=== PATIENT | female | born 1965 | race Caucasian/White ===

== ENCOUNTER 2018-11-14 12:00 | Observation (INO) ==
[2018-11-14] MEDS ORDERED: VANCOMYCIN IV PER PHARMACY MISC SCH (12:30)
[2018-11-14 12:58] LABS: BASO# 0.06 X1000 (0.0-0.2); BASO% 0.7 % (0.0-0.8); EOS# 0.42 X1000 (0.0-0.7); EOS% 5.1 % (0.0-10.0); HEMATOCRIT 40.5 % (37.0-47.0); HEMOGLOBIN 12.6 g/dL (12.0-16.0); IMM GRAN# 0.02 X1000 (0.0-0.04); IMM GRAN% 0.2 % (0.0-0.5); LYMPH# 2.92 X1000 (1.2-3.4); LYMPH% 35.3 % (20.5-51.1); MCH 29.4 PG (27-31); MCHC 31.1 g/dL (33-37); MCV 94.4 FL (81-99); MONO# 0.72 X1000 (0.11-0.59); MONO% 8.7 % (1.7-9.3); MPV 9.6 FL (7.4-10.4); NEUT# 4.14 X1000 (1.4-6.5); PLT 274 X1000 (130-400); RBC 4.29 XMIL (4.2-5.4); RDW 15.1 % (11.5-14.5); WBC 8.28 X1000 (4.8-10.8)
[2018-11-14] MEDS ORDERED: ZOSYN 3.375 GM in NS 50 ML IV SCH (13:00)
[2018-11-14] MEDS ORDERED: NS IV ONE (13:00)
[2018-11-14] MEDS ORDERED: VANCOMYCIN IV ONE (13:00)
--- NOTE | 2018-11-14 13:03 | EKG Report ---
Test Performed on : 11/14/2018 12:52:35 PM Test Reason : HX OF DVT Blood Pressure : / mmHG Vent. Rate : 073 BPM Atrial Rate : 073 BPM P-R Int : 148 ms QRS Dur : 088 ms QT Int : 404 ms P-R-T Axes : 040 015 020 degrees QTc Int : 445 ms Normal sinus rhythm. Nonspecific T wave abnormality Abnormal ECG When compared with ECG of 05-AUG-2018 21:02, No significant change was found Unconfirmed Result
[2018-11-14 13:28] LABS: AGAP 10; ALB/GLOB RATIO 1.2; ALBUMIN 3.9 g/dL (3.5-5.0); ALKALINE PHOSPHATASE 100 U/L (32-104); BUN 9 mg/dL (8-22); CALCIUM 9.6 mg/dL (8.8-10.2); CHLORIDE 103 mmol/L (98-107); COSMO 275; CREATININE 0.8 mg/dL (0.5-0.9); ESTIMATED GFR > 60; GLUCOSE 109 mg/dL (70-104); GOT 19 U/L (10-30); GPT 17 U/L (10-36); POTASSIUM 3.9 mmol/L (3.5-5.1); SODIUM 138 mmol/L (136-145); TCO2 25 mmol/L (25-35); TOTAL PROTEIN 7.2 g/dL (6.3-8.3)
[2018-11-14] MEDS: D5 1/2 NS 1,000 ML IV SCH (14:07)
[2018-11-14 14:33] LABS: URINE SOURCE CLEAN CATCH
[2018-11-14 14:37] LABS: BILIRUBIN URINE NEGATIVE (NEGATIVE); BLOOD URINE MODERATE (NEGATIVE); COLOR YELLOW; GLUCOSE URINE NEGATIVE (NEGATIVE); KETONE URINE NEGATIVE (NEGATIVE); LEUKOCYTES URINE NEGATIVE (NEGATIVE); NITRITE URINE NEGATIVE (NEGATIVE); PROTEIN URINE 50 mg/dL (NEGATIVE); TURBIDITY URINE CLEAR (CLEAR); UROBILINOGEN URINE 2 mg/dL (NORMAL)
[2018-11-14 14:40] LABS: UR EPITHELIAL CELLS <10 /HPF (<10); URINE BACTERIA NEGATIVE /HPF; URINE RBC TNTC /HPF (<10); URINE WBC <10 /HPF (<10)
[2018-11-14] MEDS: MAXIPIME 2 GM in NS 100 ML IV SCH (15:01)
--- NOTE | 2018-11-14 15:09 | INFECTIOUS DISEASE CONSULT REP ---
DATE: 11/14/2018 DISCUSSION: The patient, approximately 3 days ago, started to develop swelling and erythema of the dorsal part of her right hand. She thinks that she may have injured her hand while she was doing recycling on some metal cans. She is scheduled now to have surgery performed by Dr. Ramirez on her hand. PAST MEDICAL HISTORY/REVIEW OF SYSTEMS: Eyes and ears: She can see and hear okay. Neck: No stiffness. Respiratory: No cough or shortness of breath. Cardiac: No chest pains or palpitation. GI: No nausea, vomiting, or diarrhea. Genitourinary: No dysuria or flank pain. Bones, joints, and muscles: The patient has injured her ankle and required surgery on it, and she intermittently has pain in the ankle, but it is not swollen. Endocrine: The patient is not diabetic, and she does not have thyroid disease. Neurologic: The patient does not have seizures. She has not had any recent motor or sensory loss. 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 She has had a uterine ablation. PREVIOUS HOSPITALIZATIONS AND OPERATIONS: She has had a labor and delivery, a miscarriage, and a uterine ablation. She has had surgery on her ankle, and she has also had surgery because of a methicillin-resistant Staph aureus infection in the left groin. The patient has also had a tonsillectomy, a cholecystectomy, surgery for renal calculus, admission for an infected cat bite, and she has also had a pulmonary embolus. MEDICAL DISEASES: Positive for pulmonary embolus. INFECTIOUS DISEASE HISTORY: Positive for pneumonia and UTI. FAMILY HISTORY: Positive for hypertension, stroke, cancer, and myocardial infarction. SOCIAL HISTORY: [place] She is . She has cats and a dog and guinea pigs and fish for pets. She smokes cigarettes occasionally. She drinks alcoholic beverages, and occasionally she uses marijuana. ALLERGIES: She is allergic to azithromycin. She says it makes her face feel like it is burning. The patient has patient is allergic to acetaminophen. HOME MEDICATIONS: Include Suboxone, Zyrtec, Klonopin, Dexilant, fluticasone, Neurontin, Linzess, Remeron, Zofran, Inderal, and Xarelto. The patient tells me that the pain medicine that she takes is because of pain in her ankle that was injured and required surgery. LABORATORY DATA: CBC with a white count of 8280, hemoglobin 12.6, and platelet count 274,000. Creatinine was 0.8. GFR is greater than 60. Liver function studies were normal. PHYSICAL EXAMINATION: Vital Signs: Temperature is 99 degrees, pulse 82, respirations 12, blood pressure is 109/58. The patient weighs 165 pounds. General: This is a slightly obese, but otherwise healthy-appearing, middle-aged female. She is in no acute distress. HEENT: She can hear my spoken words and see near objects. She does not have any white patches on her tongue. Her sinuses are not tender. Neck: No pain with movement. Lungs: Clear to auscultation. Cardiovascular: Heart rate is regular. Abdomen: Soft and nontender. Extremities: The dorsum of the left hand is swollen and erythematous, and it has two small erythematous areas where the patient thinks that she might have injured her hand when she was dealing with metal cans for recycling. Neurologic: The patient is alert. She can move her extremities. There is no tremor. Her sensation is intact to touch. Her memory as regarding her medical history is intact. Integument: No rashes. CONCLUSION: The patient is admitted to the hospital with cellulitis of the left hand. She is uncertain as to how exactly she got the cellulitis. RECOMMENDATIONS: I agree with treating the patient with vancomycin. I have substituted cefepime for Zosyn because it has been shown that Zosyn in combination with vancomycin is more nephrotoxic than if another beta-lactam antibiotic such as cefepime is used instead of Zosyn. For that reason, I have substituted cefepime for Zosyn. Thank you for the consult. cc: MD Bart Cortes MD
[2018-11-14] MEDS ORDERED: LINZESS PO PRN (15:15)
[2018-11-14] MEDS ORDERED: PATADAY 0.2% OPH SOLUTION BOTH EYES PRN (15:15)
[2018-11-14] MEDS ORDERED: ZOFRAN PO PRN (15:15)
[2018-11-14] MEDS: NEURONTIN PO SCH ×4 (16:16→20:23)
[2018-11-14] MEDS: INDERAL PO SCH ×2 (20:22→20:35)
[2018-11-14] MEDS: FLONASE NAS SCH (20:22)
[2018-11-14] MEDS: DEXILANT PO SCH (20:22)
[2018-11-14] MEDS: KLONOPIN PO SCH (20:23)
[2018-11-14] MEDS: REMERON PO SCH (20:23)
[2018-11-15] MEDS: MAXIPIME 2 GM in NS 100 ML IV SCH ×2 (01:51→15:01)
[2018-11-15] MEDS: VANCOMYCIN 1 GM/NS 1 GM/250 ML IVPB IV SCH ×2 (04:05→16:02)
[2018-11-15] MEDS: SUBOXONE 2 MG/0.5 MG SL PRN ×3 (08:06→22:11)
[2018-11-15] MEDS: KLONOPIN PO SCH ×2 (08:07→22:11)
[2018-11-15] MEDS: NEURONTIN PO SCH ×4 (08:49→22:10)
[2018-11-15] MEDS: FLONASE NAS SCH ×3 (08:49→22:11)
[2018-11-15] MEDS: XARELTO PO SCH (08:50)
[2018-11-15] MEDS: INDERAL PO SCH ×2 (08:50→22:10)
[2018-11-15] MEDS: ZYRTEC PO SCH (12:54)
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
[2018-11-15] MEDS: REMERON PO SCH (22:10)
[2018-11-15] MEDS: DEXILANT PO SCH (22:10)
[2018-11-16] MEDS: MAXIPIME 2 GM in NS 100 ML IV SCH (01:54)
[2018-11-16] MEDS: VANCOMYCIN 1 GM/NS 1 GM/250 ML IVPB IV SCH (03:19)
[2018-11-16 08:03] VITALS: BP 112/58
[2018-11-16] MEDS: D5 1/2 NS 1,000 ML IV SCH (08:37)
[2018-11-16] MEDS: XARELTO PO SCH (08:40)
[2018-11-16] MEDS: NEURONTIN PO SCH (08:40)
[2018-11-16] MEDS: INDERAL PO SCH (08:40)
[2018-11-16] MEDS: ZYRTEC PO SCH (08:40)
[2018-11-16] MEDS: FLONASE NAS SCH (08:41)
[2018-11-16] MEDS: KLONOPIN PO SCH (08:42)
[2018-11-16] MEDS: SUBOXONE 2 MG/0.5 MG SL PRN (10:43)
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
== END 2018-11-16 11:49 | disposition home or self-care (01) ==
LOC: DIRADM → 4N 12:00
PROVIDERS: ADMIT Surgery; ATTEND Surgery
CPT/HCPCS: 80053; 81001; 82565; 85025; 87070; 87077; 87186; 93005; 93010; A9270; J0692; J2543; J3370; J7040

== ENCOUNTER 2019-07-09 09:50 | Inpatient (IN) ==
[2019-07-09] MEDS ORDERED: ASPIRIN PO ONE (10:24)
[2019-07-09] MEDS ORDERED: ASPIRIN PR ONE (10:24)
[2019-07-09] MEDS ORDERED: MORPHINE IV ONE (10:32)
[2019-07-09] MEDS ORDERED: NS 1,000 ML IV ONE ×2 (10:32→14:01)
--- NOTE | 2019-07-09 10:42 | PROVIDER DOCUMENTATION ---
HPI-Chest Pain - General Chief Complaint: Chest Pain Stated Complaint: CP Time Seen by Provider: 07/09/19 10:13 Source: patient Allergies/Adverse Reactions: Patient Allergies Allergy/AdvReac Type Severity Reaction Status Date / Time azithromycin [From Zithromax] AdvReac NAUSEA Verified 08/09/18 04:42 Home Medications: Home Medication List Medication Instructions Recorded Confirmed Last Taken Type Clonazepam [Klonopin] 1 mg PO TID 10/19/17 07/09/19 11/13/18 21:00 History Dexlansoprazole [Dexilant] 60 mg PO HS 10/19/17 07/09/19 11/13/18 21:00 History Gabapentin [Neurontin] 800 mg PO 4XDAY 10/19/17 07/09/19 11/14/18 09:00 History Ondansetron [Zofran] 4 mg PO TID PRN PRN 10/19/17 07/09/19 11/12/17 09:00 History Cetirizine HCl [Zyrtec] 10 mg PO DAILY 08/05/18 07/09/19 11/13/18 21:00 History Mirtazapine [Remeron] 45 mg PO HS 08/05/18 07/09/19 11/13/18 21:00 History Fluticasone 50 Mcg Nasal [place] 1 spray GERARDO PRN PRN 08/06/18 07/09/19 Unknown History [Flonase] Olopatadine 0.2% Oph Solution 1 drop BOTH EYES TID PRN 08/06/18 07/09/19 11/13/18 09:00 History [[place] 0.2% Oph Solution] Propranolol [Inderal] 1 tab PO BID PRN 08/06/18 07/09/19 11/13/18 21:00 History Rivaroxaban [Xarelto] 20 mg PO QAM 11/14/18 07/09/19 11/14/18 09:00 History Fluoxetine HCl [Prozac] 10 mg PO DAILY 06/09/19 07/09/19 Unknown History Linaclotide [Linzess] 1 tab PO DAILY PRN 07/09/19 07/09/19 Unknown History Sucralfate 1 tab PO 4XDAY 07/09/19 07/09/19 Unknown History - History of Present Illness-CP Location: reports: substernal (dull in quaility with radiation to the left shoulder) Chest Pain Radiation: reports: shoulders (left) Quality of Pain: reports: dull Severity in ED: mild Onset/Duration: gradual, other (yesterday morning) Timing: improving Context/Activities at Onset: reports: light activity Modifying Factors: improves with: nothing. worse with: breathing, coughing, exercise, movement Associated Symptoms: reports: fatigue, nausea, shortness of breath, weakness. denies: abdominal pain, diaphoresis, dizziness, edema, fever/chills, headache, heartburn, swelling/lump in chest, syncope, vomiting Nitro Today/Relief: no nitro taken today Aspirin Treatment Today: no aspirin today (took her Xarelto) Prior Chest Pain/Cardiac Workup: reports: pulmonary embolism Similar Symptoms Previously?: Yes Recently Seen Here or By Another Healthcare Provider: Yes Review of Systems - Adult - REVIEW OF SYSTEMS - ADULT Constitutional: reports: see HPI, fatique. denies: chills, fever Eyes: reports: no symptoms reported Ears, Nose, Mouth & Throat: reports: no symptoms reported Cardiovascular: reports: see HPI, chest pain. denies: palpitations, syncope Respiratory: reports: see HPI, dyspnea on exertion, shortness of breath. denies: cough Gastrointestinal: reports: see HPI Genitourinary: reports: see HPI Musculoskeletal: reports: see HPI Integumentary: reports: see HPI Neurological: reports: see HPI Psychiatric: reports: see HPI Endocrine: reports: see HPI Hematologic/Lymphatic: reports: see HPI, blood clots (history of PE) Allergic/Immunologic: reports: see HPI All Other Systems: Reviewed and Negative Past History - Adult - PAST MEDICAL HISTORY-ADULT Review of Records: reports: Old Records Reviewed, Nursing Assessment Review, Med ications Reviewed, Social history reviewed & non-contributory. Major Childhood Illnesses: reports: denies history Cardiovascular: reports: hyperlipidemia Respiratory: reports: denies history Gastrointestinal: reports: GERD, other Obstetrical/Gynecological: reports: denies history Genitourinary: reports: denies history Musculoskeletal: reports: chronic pain Neurological: reports: denies history Psychiatric: reports: anxiety Endocrine/Immune: reports: denies history Other Conditions: reports: denies history - PRIOR SURGERIES/PROCEDURES Surgical/Procedure History: reports: recent surgery, cholecystectomy, tonsillectomy - IMMUNIZATION STATUS Childhood Immunizations: See Nurse Assessment Flu Vaccine: See Nurse Assessment - FAMILY HISTORY Family History: reviewed, not pertinent - SOCIAL HISTORY Smoking: cigarettes, greater than 1 pack/day Substance Use: alcohol Alcohol Use Frequency: occasionally Physical Exam-General - PHYSICAL EXAM-ADULT Initial Vital Signs Reviewed: Yes - CONSTITUTIONAL General Appearance: alert, mild distress, anxious - EYES Eyes: PERRL/EOMI - HEAD, EARS, NOSE, MOUTH & THROAT HENMT: normocephalic/atraumatic. negative: moist mucous membranes - NECK Neck: non-tender. negative: thyromegaly - RESPIRATORY Respiratory: no respiratory distress, no accessory muscle use, wheezing ( minimal diffuse wheezing). negative: chest non-tender, normal breath sounds (decreased air movement in the lower lobes bilaterally,), no pleuratic chest pain, crackles, rales, rhonchi, stridor - CARDIOVASCULAR Cardiovascular: normal peripheral pulses, no JVD, tachycardia (sinus, regular rhythm) - GASTROINTESTINAL (ABDOMEN) Abdominal Exam: normal bowel sounds, non tender, soft - MUSCULOSKELETAL Back Exam: normal inspection Extremity: normal range of motion, non-tender, normal inspection, no pedal edema , no calf tenderness. negative: swelling, tenderness Peripheral Pulses: radial (R): 2+, radial (L): 2+ - SKIN Integumentary: normal color, warm/dry. negative: normal turgor - NEUROLOGIC Neurologic: grossly normal - PSYCHIATRIC Psych/Mental Status: anxious - HEART Score HEART Score: History: Moderately Suspicious HEART Score: ECG: Normal HEART Score: Age: 45-65 Years HEART Score: Risk Factors for Atherosclerotic Disease: > or = 3 Risk Factors or History of Atherosclerotic Disease HEART Score: Troponin: < or = Normal Limit Total HEART Score:: 4 Progress - PLAN OF CARE/RESULTS Progress/Plan/Lab Results: Vital Signs - 8 hr 07/09/19 09:57 07/09/19 10:00 07/09/19 11:00 Temperature 98.2 F Pulse Rate 95 H 114 H 103 H Respiratory Rate 23 24 18 Blood Pressure 133/95 138/101 111/74 O2 Sat by Pulse Oximetry 97 96 94 L 07/09/19 11:42 07/09/19 12:00 07/09/19 12:45 Temperature Pulse Rate 90 91 H 87 Respiratory Rate 14 20 21 Blood Pressure 119/75 O2 Sat by Pulse Oximetry 98 95 98 07/09/19 13:00 Temperature Pulse Rate 81 Respiratory Rate 19 Blood Pressure 118/66 O2 Sat by Pulse Oximetry 95 Laboratory Results - last 24 hr 07/09/19 07/09/19 07/09/19 10:12 10:12 10:12 WBC 10.98 H RBC 5.49 H Hgb 17.2 H Hct 51.8 H MCV 94.4 MCH 31.3 H MCHC 33.2 RDW Std Deviation 13.5 Plt Count 297 MPV 10.4 Immature Gran % (Auto) 0.3 Neut % (Auto) 63.9 Lymph % (Auto) 24.9 [place] % (Auto) 8.0 Eos % (Auto) 2.4 Baso % (Auto) 0.5 Immature Gran # (Auto) 0.03 Neut # (Auto) 7.02 H Lymph # (Auto) 2.73 [place] # (Auto) 0.88 H Eos # (Auto) 0.26 Baso # (Auto) 0.06 PT INR PTT (Actin FS) Sodium 141 Potassium 3.2 L Chloride 100 Carbon Dioxide 22 L Anion Gap 19 BUN 13 Creatinine 1.0 H Estimated GFR/1.73 m2 58 BUN/Creatinine Ratio 13 Glucose 124 H Calculated Osmolality 283 Calcium 11.2 H Total Bilirubin 0.50 AST 32 H ALT 39 H Alkaline Phosphatase 117 H Creatine Kinase 50 Troponin T [id number] Pept 48 Total Protein 8.2 Albumin 4.6 Globulin 3.6 Albumin/Globulin Ratio 1.3 07/09/19 07/09/19 10:12 10:12 WBC RBC Hgb Hct MCV MCH MCHC RDW Std Deviation Plt Count MPV Immature Gran % (Auto) Neut % (Auto) Lymph % (Auto) [place] % (Auto) Eos % (Auto) Baso % (Auto) Immature Gran # (Auto) Neut # (Auto) Lymph # (Auto) [place] # (Auto) Eos # (Auto) Baso # (Auto) PT 24.8 H INR 2.18 PTT (Actin FS) 46.5 H Sodium Potassium Chloride Carbon Dioxide Anion Gap BUN Creatinine Estimated GFR/1.73 m2 BUN/Creatinine Ratio Glucose Calculated Osmolality Calcium Total Bilirubin AST ALT Alkaline Phosphatase Creatine Kinase Troponin T < 0.010 [id number] Pept Total Protein Albumin Globulin Albumin/Globulin Ratio Orders Category Date Time Status Cardiac Monitoring DIRECTED Care 07/09/19 10:25 Active Oxygen Therapy- ED Nursing DIRECTED Care 07/09/19 10:25 Active Saline Loc NOW Care 07/09/19 10:25 Active CHEST-2 VIEWS [RAD] Stat Exams 07/09/19 10:[address] ANGIOGRM PULMONARY ARTERIES [CT] Stat Exams 07/09/19 10:29 Completed CBC WITH ELECTRONIC DIFF [HEME] Stat Lab 07/09/19 10:12 Completed CK PROFILE [SP CHEM] Stat Lab 07/09/19 10:12 Completed COMPREHENSIVE METABOLIC PANEL [CHEM] Stat Lab 07/09/19 10:12 Completed PRO B-NATRIURETIC PEPTIDE Stat Lab 07/09/19 10:12 Completed PROTIME WITH INR [COAG] Stat Lab 07/09/19 10:12 Completed PTT [COAG] Stat Lab 07/09/19 10:12 Completed TROPONIN T Stat Lab 07/09/19 10:12 Completed 0.9% Sodium Chloride Inj [Ns] 1,000 ml Med 07/09/19 10:32 Discontinued IV 999 mls/hr Aspirin Med 07/09/19 10:24 Discontinued 300 mg MA NOW ONE Aspirin Med 07/09/19 11:16 Discontinued 325 mg .ROUTE .STK-MED ONE Aspirin Med 07/09/19 10:24 Discontinued 325 mg PO NOW ONE Enoxaparin 1 mg/kg [Lovenox 1 mg/kg] Med 07/09/19 12:00 Discontinued 1 each SUBQ Q12H Enoxaparin [Lovenox] Med 07/09/19 12:15 Discontinued 70 mg SUBQ ONCE ONE Enoxaparin [Lovenox] Med 07/10/19 01:00 Active 70 mg SUBQ Q12H Morphine Med 07/09/19 10:32 Discontinued 4 mg IV NOW ONE Ondansetron [Zofran] Med 07/09/19 12:06 Discontinued 4 mg IV NOW ONE Potassium Chloride E.r. [Klor-Con] Med 07/09/19 11:56 Discontinued 40 meq PO NOW ONE Potassium Chloride Powder Pkt [Klor-Con Powder Packet] Med 07/09/19 11:42 Discontinued 40 meq PO NOW ONE CP/SOB/Palp >45 yrs of Age Stat Oth 07/09/19 10:24 Ordered EKG [EKG] Stat Ther 07/09/19 09:57 Draft Transfer/Admit Order [TRANSFER] Routine Transfer 07/09/19 12:57 Ordered Reviewed patient prior visit and prior EKG Result Diagrams: 07/09/19 10:12 07/09/19 10:12 - EKG 1 Time of EKG reading by physician:: 10:01 EKG Read and Signed by:: Michel Yu EKG Interpretation (*Must complete 3 of following elements*): Abnormal (sinus tachycardia) Rate: 116 Rhythm: sinus [place]: normal QRS: normal MA Interval: normal ST Wave: non-specific ST changes Prior EKG Comparison: changes noted - CT/MRI 1 CT Study: Thorax Impression: Abnormal Comparison with other Films: changes noted CT Results: FINDINGS: There is probably a small to moderate, nonocclusive embolus in th - CONSULTS/PCP/HOSPITALIST Notification #1 *Consult/PCP/Hospitalist*: spoke with ARSALAN Donohue who aggreed to accept patient Time Discussed: 12:23 (admitted under Dr. Ziegler) Reason/Comments: left main pulmonary artery embolism Consult Disposition: Will see in ED, Admit Departure - Departure Date of Disposition Decision: 07/09/19 Time of Disposition Decision: 12:11 DIAGNOSIS: Tobacco abuse disorder, Acute dyspnea, Sinus tachycardia Pulmonary embolism Qualifiers: Pulmonary embolism type: single subsegmental (without acute cor pulmonale) Qualified Code(s): I26.93 - Single subsegmental pulmonary embolism without acute cor pulmonale Chest pain Qualifiers: Chest pain type: chest pain on breathing Qualified Code(s): R07.1 - Chest pain on breathing Disposition: ADMITTED INPATIENT 09 Certified Medical Emergency: Emergent Condition: Fair - Critical Care Note This patient required my direct & personal management of CC.: Yes Total Time (mins): 50 (Resp & CVS required immediate intervention to prevent life threatening deterioration.) Critical Care Statement: This patient required my direct personal management to treat or rule out processes, the absence of which, could potentiallly result in sudden, clinically significant life or limb threatening deterioration. Attestation - Physician/ KIRSTEN Attestation Patient care was provided by Advanced Practice Provider:: No The physician spent face to face time with patient:: Yes Advanced Practice Provider documentation review:: Supervising physician onsite and consulted in the evaluation and care of this patient. The physician did have a face to face encounter with the patient.
[2019-07-09 10:50] LABS: BASO# 0.06 X1000 (0.0-0.2); BASO% 0.5 % (0.0-0.8); EOS# 0.26 X1000 (0.0-0.7); EOS% 2.4 % (0.0-10.0); HEMATOCRIT 51.8 % (37.0-47.0); HEMOGLOBIN 17.2 g/dL (12.0-16.0); IMM GRAN# 0.03 X1000 (0.0-0.04); IMM GRAN% 0.3 % (0.0-0.5); LYMPH# 2.73 X1000 (1.2-3.4); LYMPH% 24.9 % (20.5-51.1); MCH 31.3 PG (27-31); MCHC 33.2 g/dL (33-37); MCV 94.4 FL (81-99); MONO# 0.88 X1000 (0.11-0.59); MPV 10.4 FL (7.4-10.4); NEUT# 7.02 X1000 (1.4-6.5); NEUT% 63.9 % (42.2-75.2); PLT 297 X1000 (130-400); RBC 5.49 XMIL (4.2-5.4); RDW 13.5 % (11.5-14.5); WBC 10.98 X1000 (4.8-10.8)
--- NOTE | 2019-07-09 10:57 | Diag Imaging Result Doc PS360 ---
EXAM: CHEST-2 VIEWS 07/09/2019 HISTORY: chest pain TECHNIQUE: PA and lateral chest COMMENT: There are some questionable platelike opacities in the left base which were probably present on 06/10/2019 but were less evident on 08/12/2018. The heart size and pulmonary vascularity are within normal limits and the right lung is clear. IMPRESSION: Minimal left lower lobe and/or lingular atelectasis. Electronically signed by Valente Isidro 07/09/2019 10:55 AM
[2019-07-09] MEDS ORDERED: ASPIRIN ONE (11:16)
[2019-07-09 11:17] LABS: INR 2.18; PROTIME 24.8 Seconds (11.0-16.0)
[2019-07-09 11:18] LABS: ALB/GLOB RATIO 1.3; ALBUMIN 4.6 g/dL (3.5-5.0); CALCIUM 11.2 mg/dL (8.8-10.2); POTASSIUM 3.2 mmol/L (3.5-5.1); PTT 46.5 Seconds (22.3-41.8); TOTAL BILIRUBIN 0.5 mg/dL (0.20-1.00); TOTAL PROTEIN 8.2 g/dL (6.3-8.3)
[2019-07-09] MEDS ORDERED: KLOR-CON POWDER PACKET PO ONE (11:42)
[2019-07-09] MEDS ORDERED: KLOR-CON PO ONE (11:56)
--- NOTE | 2019-07-09 11:57 | Diag Imaging Result Doc PS360 ---
CT ANGIOGRM PULMONARY ARTERIES - 07/09/2019 INDICATION: rule out PE TECHNIQUE: Axial CT images were obtained after administering intravenous contrast. Coronal MIP images were generated. COMPARISON: 08/05/2018 FINDINGS: There is probably a small to moderate, nonocclusive embolus in the left main pulmonary artery. No other vascular abnormalities. There is no adenopathy. Heart size is normal. Upper abdominal images are normal. There is advanced COPD. No infiltrates. Airways are clear. There are moderate degenerative changes of the spine. No acute or suspicious bony lesion. IMPRESSION: Single pulmonary embolus in the left main pulmonary artery. This report was discussed with Dr. Luther Simms on 07/09/2019 at 11:54 AM and was readback. This exam was performed using automated exposure control, adjustment of mA or kV according to patient size, and/or use of iterative reconstruction technique Electronically signed by Ilya Heart 07/09/2019 11:55 AM
[2019-07-09] MEDS ORDERED: LOVENOX 1 MG/KG SUBQ SCH (12:00)
[2019-07-09] MEDS ORDERED: ZOFRAN IV ONE (12:06)
[2019-07-09] MEDS ORDERED: LOVENOX SUBQ ONE (12:15)
--- NOTE | 2019-07-09 13:07 | EKG Report ---
Test Performed on : 07/09/2019 09:57:45 AM Test Reason : ED. No order in [place] Blood Pressure : / mmHG Vent. Rate : 116 BPM Atrial Rate : 116 BPM P-R Int : 146 ms QRS Dur : 090 ms QT Int : 336 ms P-R-T Axes : 064 036 039 degrees QTc Int : 467 ms Sinus tachycardia. Otherwise normal ECG When compared with ECG of 14-NOV-2018 12:52, Vent. rate has increased BY [address] now depressed in Anterior leads Unconfirmed Result
[2019-07-09] MEDS ORDERED: LINZESS PO PRN (14:01)
[2019-07-09] MEDS ORDERED: INDERAL PO PRN (14:01)
[2019-07-09] MEDS ORDERED: NORCO-7.5 PO PRN (14:01)
[2019-07-09] MEDS ORDERED: FLONASE NAS PRN (14:01)
[2019-07-09] MEDS ORDERED: PATADAY 0.2% OPH SOLUTION BOTH EYES PRN (14:01)
--- NOTE | 2019-07-09 14:13 | HISTORY AND PHYSICAL ---
ADDENDUM: Patient seen and examined by me [id number]. All the laboratory, vital signs, and images were reviewed. The patient presented to the emergency department with shortness of breath and some chest discomfort, radiated to the left shoulder and arm. Initial EKG and troponins without abnormality. It showed sinus tachycardia. In the emergency department, she had a CT angiogram of the chest done that showed a single pulmonary embolus in the left main pulmonary artery that looks like it is nonocclusive per the report. There is also advanced COPD and no infiltrates. On the other hand, recently this patient had a colonoscopy done and apparently she has been having some diarrhea afterwards. She has not been able to eat or drink too much. She seems to be clinically dehydrated. We will hydrate this patient. We will start this patient on Lovenox twice a day. She had a previous hospitalization in July 2018 due to pulmonary thromboembolism and she has been seen by Dr. Mcmullen as an outpatient, which we will consult for this episode as well. She stopped taking the Xarelto for 3 days for the procedure and then she apparently started this treatment back again. I will continue with the rest of her home medications. I will put this patient in the PVC unit at least for 24 hours just to monitor her closely. I will check the troponins and I will get a new EKG also in the morning. For this pulmonary embolism, we will use Lovenox twice a day but hopefully we will put this patient back on her home medications tomorrow after the evaluation by Hematology/Oncology Department. cc: Darell Phillips MD
[2019-07-09] MEDS: ZOFRAN IV PRN ×2 (16:54→20:53)
[2019-07-09] MEDS: NEURONTIN PO SCH ×2 (16:54→20:55)
[2019-07-09] MEDS: CARAFATE PO SCH ×2 (16:54→20:55)
[2019-07-09] MEDS ORDERED: KLONOPIN PO SCH (17:00)
--- NOTE | 2019-07-09 19:20 | HISTORY AND PHYSICAL ---
PRIMARY CARE PROVIDER: None. GLASS INSTALLER TECHNICIAN ONCOLOGIST: Dr. Mcmullen. GI SPECIALIST: Dr. Pop. CHIEF COMPLAINT: Shortness of breath, chest pain. HISTORY OF PRESENT ILLNESS: Ms. Glez is a 54-year-old female who carries a past medical history of chronic pain, anxiety, GERD, hypertension, PE over year ago was on Xarelto, who reported that over a week ago she was taken off her Xarelto for 3 days to have an EGD and colonoscopy and then started back her Xarelto on . She reported since her EGD and colonoscopy, she had not been able to eat or drink and was having episodes of diarrhea and she was just lying around the house. She called and made an appointment with Dr. Pop. However, while she was in his office, she started having chest pain and became more short of breath. They sent her to the ED to be evaluated with her history of PE. Workup in the ED with a CT of the chest did show a single pulmonary embolus in the left main pulmonary artery. She was initiated on full dose Lovenox and request for admission. PAST MEDICAL HISTORY: 1. Chronic pain. 2. Anxiety. 3. Gastroesophageal reflux disease. 4. Essential hypertension. 5. Previous PE. PAST SURGICAL HISTORY: 1. Cholecystectomy. 2. Tonsillectomy. 3. Right ankle surgery. 4. Recent EGD and colonoscopy. SOCIAL HISTORY: Shows a 25 pack-year history of smoking. Continues to smoke. No alcohol or illicit drugs. FAMILY HISTORY: Positive for coronary artery disease in father. REVIEW OF SYSTEMS: Twelve-point review of systems completely negative except for those mentioned in HPI. ALLERGIES: To azithromycin. HOME MEDICATIONS: 1. Zyrtec 10 mg p.o. daily. 2. Klonopin 1 mg p.o. t.i.d. 3. Dexilant 60 mg p.o. at bedtime. 4. Prozac 10 mg p.o. daily. 5. Flonase 1 spray nasal p.r.n. 6. Neurontin 800 mg p.o. 4 times a day. 7. Linzess 1 tab p.o. daily p.r.n. 8. Remeron 45 mg p.o. at bedtime. 9. Zofran 4 mg p.o. t.i.d. p.r.n. 10. Inderal 1 tab p.o. b.i.d. p.r.n. 11. Xarelto 20 mg p.o. q.a.m. 12. Carafate 1 tab p.o. 4 times a day. PHYSICAL EXAMINATION: VITAL SIGNS: Temperature is 97.6 degrees, heart rate 81, respirations 16, blood pressure 104/49, O2 is 96% on room air. GENERAL: Ms. Glez is a 54-year-old female who is lying in the bed in no acute distress, who whispers when she talks. HEENT: Atraumatic, normocephalic. PERRL. NECK: Supple. Trachea midline. CARDIOVASCULAR: S1, S2 appreciated. No murmurs, gallops, rubs noted. RESPIRATORY: Lung sounds clear bilaterally. GI: Soft, nontender, nondistended. Positive bowel sounds in 4 quadrants. EXTREMITIES: Negative for edema. NEUROLOGIC: No focal deficits noted. DIAGNOSTIC DATA: Pulmonary arteriogram showed a single pulmonary embolus in the left main pulmonary artery that was nonocclusive. LABORATORY DATA: White count 10, hemoglobin and hematocrit 17 and 51, platelet count 297,000. Sodium 141, potassium 3.2, BUN 13, creatinine 1, blood glucose is 124. AST 32, ALT 39, alkaline phosphatase 117. Troponin less than 0.010. ASSESSMENT AND PLAN: 1. Pulmonary embolus in the left main pulmonary artery that is nonocclusive. The patient has been initiated on full-dose Lovenox. We will continue Lovenox q.12 hours. We will consult Dr. Mcmullen. The patient had recently been taken off her Xarelto for 3 days for esophagogastroduodenoscopy and colonoscopy. We will check bilateral venous Dopplers and monitor in PVC overnight and continue with IV fluids. 2. Clinical dehydration. We will continue with IV fluids. 3. Diarrhea. Continue to monitor. Continue with IV fluids. 4. Hypokalemia. This has been replenished in the emergency department. We will recheck in the a.m. 5. Further recommendation to follow physician evaluation, laboratory and diagnostic data. Dictated by ARSALAN Reagan for Darell Phillips MD cc: MD Emery Alvarado MD A. Joseph Alexander, MD
[2019-07-09] MEDS: DEXILANT PO SCH (20:55)
[2019-07-09] MEDS: REMERON PO SCH (20:55)
[2019-07-09] MEDS: KLONOPIN PO SCH (20:58)
[2019-07-09] MEDS ORDERED: OXY IR PO PRN (22:20)
[2019-07-09] MEDS: OXY IR PO PRN (23:05)
[2019-07-09] MEDS: LOVENOX SUBQ SCH (23:06)
[2019-07-10] MEDS ORDERED: LOVENOX SUBQ SCH (01:00)
[2019-07-10 05:20] LABS: BASO# 0.04 X1000 (0.0-0.2); BASO% 0.6 % (0.0-0.8); EOS# 0.28 X1000 (0.0-0.7); EOS% 4.2 % (0.0-10.0); HEMATOCRIT 41.2 % (37.0-47.0); HEMOGLOBIN 13.5 g/dL (12.0-16.0); IMM GRAN# 0.02 X1000 (0.0-0.04); IMM GRAN% 0.3 % (0.0-0.5); LYMPH% 45.5 % (20.5-51.1); MCH 31.8 PG (27-31); MCHC 32.8 g/dL (33-37); MCV 97.2 FL (81-99); MONO# 0.47 X1000 (0.11-0.59); MONO% 7.1 % (1.7-9.3); NEUT# 2.78 X1000 (1.4-6.5); NEUT% 42.3 % (42.2-75.2); PLT 205 X1000 (130-400); RBC 4.24 XMIL (4.2-5.4); RDW 13.5 % (11.5-14.5); WBC 6.59 X1000 (4.8-10.8)
[2019-07-10 06:26] LABS: AGAP 14; ALB/GLOB RATIO 1.5; ALBUMIN 3.4 g/dL (3.5-5.0); ALKALINE PHOSPHATASE 107 U/L (32-104); BUN 13 mg/dL (8-22); CALCIUM 9.2 mg/dL (8.8-10.2); CHLORIDE 110 mmol/L (98-107); COSMO 288; CREATININE 0.8 mg/dL (0.5-0.9); ESTIMATED GFR > 60; GLUCOSE 118 mg/dL (70-104); GOT 78 U/L (10-30); GPT 105 U/L (10-36); POTASSIUM 3.8 mmol/L (3.5-5.1); SODIUM 144 mmol/L (136-145); TCO2 20 mmol/L (25-35); TOTAL BILIRUBIN 0.23 mg/dL (0.20-1.00); TOTAL PROTEIN 5.6 g/dL (6.3-8.3)
[2019-07-10] MEDS: ZOFRAN IV PRN ×2 (06:50→19:47)
[2019-07-10] MEDS: OXY IR PO PRN ×3 (06:59→23:09)
--- NOTE | 2019-07-10 07:30 | EKG Report ---
Test Performed on : 07/10/2019 06:20:03 AM Test Reason : CP Blood Pressure : / mmHG Vent. Rate : 084 BPM Atrial Rate : 084 BPM P-R Int : 144 ms QRS Dur : 100 ms QT Int : 394 ms P-R-T Axes : 066 044 027 degrees QTc Int : 465 ms Normal sinus rhythm. Septal infarct , age undetermined Abnormal ECG When compared with ECG of 09-JUL-2019 09:57, (Unconfirmed) ST no longer depressed in Anterior leads Inverted T waves have replaced nonspecific T wave abnormality in Anterior leads Unconfirmed Result
--- NOTE | 2019-07-10 07:56 | Diag Imaging Result Doc PS360 ---
CHEST-PORTABLE - 07/10/2019 INDICATION: dyspnea COMPARISON: 07/09/2019 FINDINGS: Lung volumes are much lower with some patchy atelectasis in the lung bases. Otherwise no dense infiltrates. No pneumothorax or pleural effusion. IMPRESSION: Nonspecific findings. Electronically signed by Ilya Heart 07/10/2019 7:54 AM
--- NOTE | 2019-07-10 08:00 | PROGRESS NOTE ---
DATE: 07/10/2019 SUBJECTIVE: This patient states that she is feeling better. We did a lower extremity ultrasound yesterday, pending results. I will wait for this so she can start walking around. She has a history of DVT at the level of the lower extremities, and also pulmonary embolism, and she has been chronically anticoagulated with Xarelto. Recently, she had a procedure done, and she stopped the anticoagulation for 3 days, and yesterday, she came in with shortness of breath, and the CT angiogram of the chest showed a single pulmonary embolus in the left main pulmonary artery, but apparently it is not causing complete obstruction per the report. OBJECTIVE: Vital Signs: Temperature 98.5 degrees, pulse 83, respiratory rate 16, blood pressure 91/53, oxygen saturation 93 on 2 L of nasal cannula. HEENT: Head normocephalic. No trauma. PERRLA. Neck: Supple. No JVD. No masses. Central trachea. Chest: Clear to auscultation. No wheezing. No rales. Some crepitus at the right base. Abdomen: Soft, nontender, nondistended. No hepatosplenomegaly. Extremities: No edema, no clubbing, no cyanosis. Neurological: The patient is alert. She is oriented x3. No focal deficits. LABORATORY DATA: WBC 6.5, hemoglobin 13.5, platelets 205,000. Sodium 144, potassium 3.8, chloride 110, bicarbonate 20, BUN 13, creatinine 0.8, glucose 118, calcium 9.2. AST 78, ALT 105, alkaline phosphatase 107, albumin 3.4. ASSESSMENT AND PLAN: 1. Pulmonary embolism in the left main pulmonary artery, apparently nonocclusive per the report. This patient has been initiated on a full dose of Lovenox, and I will continue with that. We already consulted Hematology/Oncology Department to evaluate this patient. She has been on Xarelto before, but she stopped it for 3 days for an endoscopic procedure. We also requested a Doppler ultrasound of the lower extremities, pending results. 2. Clinical dehydration. She seems to be much better. Will continue to monitor. 3. Diarrhea. I do not have any reported bowel movements since admission. We will continue to monitor. I asked the patient to eat. 4. Hypokalemia, resolved. 5. Elevated liver function tests, worse compared with yesterday. She has been having elevated liver function tests before, and it has been going on for a little bit. It has been on and off though. I will request an evaluation by Gastroenterology Department, and also I asked for an abdominal ultrasound and a hepatitis panel. 6. Gastroesophageal reflux disease. Continue with proton pump inhibitors. 7. Hypertension. Continue home medication. 8. Anxiety. Continue home medications as well. cc: Darell Phillips MD
--- NOTE | 2019-07-10 08:10 | Diag Imaging Result Doc PS360 ---
US ABDOMEN-COMPLETE - 07/10/2019 INDICATION: Elevated LFTs COMPARISON: CT with contrast from 06/10/2019 FINDINGS: The gallbladder is surgically absent. The liver is mildly fatty. No liver masses. No biliary dilation. Common bile duct measures 8 mm. There are a couple of nonobstructing left renal stones measuring up to 6 mm. There is a right renal cyst. Otherwise the kidneys are normal. The pancreas and spleen are normal. Maximum spleen size is 8.6 cm. Aorta, IVC, and main portal vein are patent. IMPRESSION: 1. Fatty liver. 2. Nonobstructing left renal stones. Electronically signed by Ilya Heart 07/10/2019 8:08 AM
[2019-07-10] MEDS: PROZAC PO SCH (08:46)
[2019-07-10] MEDS: ZYRTEC PO SCH (08:46)
[2019-07-10] MEDS: CARAFATE PO SCH ×4 (08:47→21:45)
[2019-07-10] MEDS: KLONOPIN PO SCH ×3 (08:47→21:57)
[2019-07-10] MEDS: LOVENOX SUBQ SCH (08:47)
[2019-07-10] MEDS: NEURONTIN PO SCH ×4 (08:47→21:45)
[2019-07-10] MEDS: TYLENOL PO PRN ×2 (11:57→20:04)
--- NOTE | 2019-07-10 15:34 | GENERAL SURGERY CONSULTATION ---
DATE: 07/10/2019 HISTORY OF PRESENT ILLNESS: Ms. Glez is a pleasant 54-year-old, who was admitted yesterday with shortness of breath and chest pain. Pulmonary arteriogram proved her to have a pulmonary embolus in the left main pulmonary artery. She has a history of pulmonary embolus last January and has been on Xarelto until last week, which time she was off it for 3 days in preparation for a colonoscopy. It was subsequent to this that she developed the shortness of breath and chest pain resulting in the evaluation and the findings of the pulmonary embolus. I now have been asked to see her regarding a possible filter placement because of the fact that the embolus occurred either on Xarelto or with only a brief stoppage of the Xarelto. She does continue to smoke, making her a high risk for clot formation. PAST MEDICAL HISTORY: Pertinent for gastroesophageal reflux disease, anxiety, chronic pain, essential hypertension. PREVIOUS SURGERY: Includes a cholecystectomy, tonsillectomy, right ankle surgery, recent EGD and colonoscopy. SOCIAL HISTORY: She has a 25 pack-year smoking history. Denies alcohol or illicit drug use. FAMILY HISTORY: Pertinent for coronary artery disease. MEDICATIONS: Her medications are listed and include: Klonopin 1 mg t.i.d.,. Dexilant 60 mg at bedtime, Neurontin 800 mg four times a day, Zofran 4 mg p.r.n., Zyrtec 10 mg daily, Remeron 45 mg at bedtime, Flonase p.r.n., eyedrops both eyes, Inderal 20 mg b.i.d. p.r.n., Xarelto 20 mg q.a.m., Prozac 10 mg daily, sucralfate 1 g p.o. 4 times a day, Lomotil b.i.d. p.r.n., oxycodone 10 mg t.i.d. as needed and Linzess 90 mcg daily as needed. ALLERGIES: She has an allergy to azithromycin. REVIEW OF SYSTEMS: Negative in every other entity subsystems. PHYSICAL EXAMINATION: Vital Signs: She is afebrile. Heart rate 69, respiratory rate 18, blood pressure 98/70. Neck: No cervical adenopathy. Lungs: Bilateral breath sounds. Heart: Regular rate and rhythm. Abdomen: Soft. She is minimally tender. Extremities: Femoral pulses are present. No peripheral edema. No significant peripheral swelling. Neurologic: She is awake, alert and oriented. LABS: White count 6600, hemoglobin 13.5. BUN 13, creatinine 0.8. ASSESSMENT: Pulmonary embolus, either on chronic anticoagulation or with a brief cessation of the Xarelto. She also continues to smoke, putting her at high risk for clot formation. I did discuss filter placement with her, the benefits and risks of that. She wants to proceed. We will have her scheduled for the . cc: Miguel Montes MD
[2019-07-10] MEDS: DEXILANT PO SCH (21:45)
[2019-07-10] MEDS: REMERON PO SCH (21:45)
[2019-07-10] MEDS: ELIQUIS PO SCH (21:53)
[2019-07-11] MEDS: ZOFRAN IV PRN (03:05)
[2019-07-11] MEDS: TYLENOL PO PRN (03:05)
[2019-07-11 06:11] LABS: BASO# 0.05 X1000 (0.0-0.2); BASO% 0.7 % (0.0-0.8); EOS# 0.39 X1000 (0.0-0.7); EOS% 5.4 % (0.0-10.0); HEMATOCRIT 40.1 % (37.0-47.0); HEMOGLOBIN 13.3 g/dL (12.0-16.0); LYMPH# 3.13 X1000 (1.2-3.4); LYMPH% 43.2 % (20.5-51.1); MCH 31.7 PG (27-31); MCHC 33.2 g/dL (33-37); MCV 95.7 FL (81-99); MONO# 0.75 X1000 (0.11-0.59); MONO% 10.4 % (1.7-9.3); MPV 10.7 FL (7.4-10.4); NEUT# 2.92 X1000 (1.4-6.5); NEUT% 40.3 % (42.2-75.2); PLT 198 X1000 (130-400); RBC 4.19 XMIL (4.2-5.4); RDW 13.1 % (11.5-14.5); WBC 7.24 X1000 (4.8-10.8)
[2019-07-11 06:35] LABS: AGAP 11; ALB/GLOB RATIO 1.6; ALBUMIN 3.6 g/dL (3.5-5.0); ALKALINE PHOSPHATASE 95 U/L (32-104); BUN 12 mg/dL (8-22); CALCIUM 9.2 mg/dL (8.8-10.2); CHLORIDE 107 mmol/L (98-107); COSMO 283; CREATININE 0.8 mg/dL (0.5-0.9); ESTIMATED GFR > 60; GLUCOSE 97 mg/dL (70-104); GOT 39 U/L (10-30); GPT 82 U/L (10-36); POTASSIUM 3.8 mmol/L (3.5-5.1); SODIUM 142 mmol/L (136-145); TCO2 24 mmol/L (25-35); TOTAL BILIRUBIN 0.27 mg/dL (0.20-1.00); TOTAL PROTEIN 5.8 g/dL (6.3-8.3)
[2019-07-11] MEDS: OXY IR PO PRN (06:53)
[2019-07-11] MEDS: NEURONTIN PO SCH (07:40)
[2019-07-11] MEDS: PROZAC PO SCH (07:40)
[2019-07-11] MEDS: KLONOPIN PO SCH (07:40)
[2019-07-11] MEDS: ELIQUIS PO SCH (07:40)
[2019-07-11] MEDS: CARAFATE PO SCH (07:41)
[2019-07-11] MEDS: ZYRTEC PO SCH (07:41)
[2019-07-11] MEDS ORDERED: HEPARIN ONE ×2 (07:56→08:04)
[2019-07-11] MEDS ORDERED: NS 0 ML ONE (07:57)
[2019-07-11 07:58] VITALS: BP 108/56
[2019-07-11] MEDS ORDERED: XYLOCAINE 1%/EPI 1:100,000 ONE (08:08)
--- NOTE | 2019-07-11 14:55 | GENERAL SURGERY PROGRESS NOTE ---
DATE: 07/11/2019 I discussed the situation with Dr. Mcmullen yesterday. He does not feel that we should proceed with the filter so I have discussed that with Ms. Glez. We will cancel that for now, and intervene in the future only if needed. She understands and agrees. cc: Miguel Montes MD
--- NOTE | 2019-07-11 21:00 | HEMO/ONC CONSULTATION ---
DATE: 07/10/2019 REQUESTING PHYSICIAN: Darell Phillips MD We appreciate this consult. CHIEF COMPLAINT: Pulmonary embolism. HISTORY OF PRESENT ILLNESS: Ms Glez is a 54-year-old female, known to Dr. Mcmullen with a history of pulmonary embolism. She has been maintained on Xarelto. The patient also has a history of chronic pain, anxiety, gastroesophageal reflux disease, and hypertension. The patient was taken off of her Xarelto in preparation for EGD and colonoscopy. The patient began to have significant episodes of diarrhea and profound malaise. The patient began having chest pain and shortness of breath and presented to [facility] Emergency Department. The patient underwent arteriogram which revealed a single pulmonary embolism in the left main pulmonary artery. The patient was begun on therapeutic Lovenox and admitted. We are consulted as she is known. PAST SURGICAL HISTORY: As in HPI. PAST SURGICAL HISTORY: 1. Cholecystectomy. 2. Tonsillectomy. 3. Right ankle surgery. SOCIAL HISTORY: The patient has [id number] history of smoking. She does not use alcohol or illicit drugs. FAMILY HISTORY: Negative for any hematologic or oncologic disease. MEDICATIONS ON ADMISSION: 1. Zyrtec. 2. Klonopin. 3. Dexilant. 4. Prozac. 5. Flonase spray. 6. Neurontin. 7. Linzess. 8. Remeron. 9. Zofran. 10. Inderal. 11. Xarelto. 12. Carafate. ALLERGIES: Azithromycin. REVIEW OF SYSTEMS: A 14 point review of systems is negative except as mentioned in HPI. PHYSICAL EXAMINATION: Ms. Glez is a pleasant 54-year-old female, lying supine in bed in no immediate distress.Vital Signs: Temperature 98.5 degrees, blood pressure is 99/55, heart rate 80, respirations 16, O2 saturation is 95% on 2 L nasal cannula O2. HEENT: Normocephalic, atraumatic. Mucous membranes are pink and somewhat dry. Sclerae are anicteric. Extraocular movements intact. Neck: Supple. Lungs: Clear to auscultation bilaterally with the left lower lobe wheezes. Cardiovascular: S1, S2 is heard. No murmurs, rubs, or gallops. Abdomen: Soft, nondistended, tender to palpation throughout. Extremities: Without clubbing, cyanosis, or edema. Dermatologic: No rashes, bruises, or lesions. Neurologic: The patient is awake, alert, and oriented x3. Has no focal deficit. LABORATORY DATA: Hemoglobin 13.5, hematocrit 41.2, white blood cell count 6.59, platelets 205,000. Sodium 144, potassium 3.8, chloride 110, CO2 is 20, BUN 13, creatinine 0.8, glucose is 118, bilirubin 0.23, alkaline phosphatase 107, AST 78, ALT 105. IMAGING STUDIES: Chest x-ray reveals patchy atelectasis in the bases. Pulmonary arteriogram reveals single pulmonary embolism in the left main pulmonary artery. ASSESSMENT AND PLAN: 1. Pulmonary embolism of the left main pulmonary artery. The patient is currently on therapeutic Lovenox. We agree with treatment. Would return the patient to [facility] prior to discharge. 2. Dehydration, currently on IV fluids. 3. Hypokalemia status post repletion. Potassium is currently normal at 3.8. 4. Diarrhea, resolved at this time. We will follow along with you and make further recommendations pending outcomes. The above reflects the history, exam, assessment, and plan of Dr. Mcmullen. Dictated by ARSALAN Noel for Emery Mcmullen MD cc: ARSALAN Noel MD Omar J. Sosa-Chirinos, MD
[2019-07-12 12:27] LABS: HEPATITIS PROFILE ACUTE SEE COMMENTS
--- NOTE | 2019-07-12 14:30 | DISCHARGE SUMMARY ---
ADMISSION DATE: 07/09/2019 DISCHARGE DATE: 07/11/2019 DISCHARGE DIAGNOSES: 1. Pulmonary embolism in the left main pulmonary artery, nonocclusive, recurrent. 2. Clinical dehydration, resolved. 3. Hypokalemia, resolved. 4. Elevated LFTs, chronic. 5. Gastroesophageal reflux disease continue with proton pump inhibitor. 6. Hypertension. 7. Anxiety. CONSULTATIONS: 1. Hematology/ oncology Department. 2. Surgery Department. HOSPITAL COURSE: A 54-year-old female with a past medical history of chronic pain, anxiety, GERD, hypertension, PE over a year ago on chronic anticoagulation on Xarelto, who reported that over a week ago she was taken off her Xarelto for 3 days to have an EGD and colonoscopy and then she started back her Xarelto on ., she reported since her EGD and colonoscopy she had not been able to eat or drink and was having some episodes of diarrhea and she was just laying around the house. She called and make and made an appointment with Dr. Pop. However, while she was in the office she started having some chest discomfort and became short of breath. She was sent to the emergency department to evaluate this patient, but with her history of PE, the workup in the ED showed that she has a single pulmonary embolism in the left main pulmonary artery. She was initiated on full dose of Lovenox and she was admitted to the PVC unit. This patient is the patient actually was feeling better and the pain also was better. Actually she was not requiring oxygen. We requested an evaluation by Hematology/Oncology Department, Dr. Mcmullen who suggested to me to start this patient on Eliquis 10 mg p.o. twice a day for 7 days and then 5 mg p.o. daily and follow up with him in 1 week. Also surgery department evaluated this patient for the possibility of placing an IVC filter, but after thinking about it, hematology oncology department decided just to treat this patient with anticoagulation and not go with a filter at this moment. The patient seems to understand this. Today, this patient was feeling much better. She will be discharged home. She already started this treatment with Eliquis yesterday night and she needs to complete the treatment with 10 mg twice a day until the of this month and then 5 mg twice a day started also on the in the afternoon. I explained this to the patient and I also put this in the prescription. Follow up with Dr. Mcmullen in 1 week. PHYSICAL EXAMINATION: Temperature 98 degrees 7.9, pulse 80, respiratory rate 16, blood pressure 108/56, oxygen saturation 95% on room air. HEENT head normocephalic, no trauma PERRLA neck is supple. No JVD. No masses. Central trachea. Chest: Clear to auscultation. No wheezing. No rales. Abdomen: Soft, nontender, nondistended. No hepatosplenomegaly. Extremities: No edema no clubbing no cyanosis. Neurological: The patient is alert and oriented x3. No focal deficits. LABORATORY: WBC 7.2, hemoglobin 13.3, hematocrit 40.1, platelets 198,000. Sodium 142, potassium 3.8, chloride 107, bicarbonate 24, BUN 12, creatinine 0.8 glucose 97, calcium 9.2, AST 39, ALT 82, alkaline phosphatase 95. DISCHARGE MEDICATIONS: 1. Eliquis 10 mg p.o. b.i.d. to complete 7 days, then 5 mg p.o. b.i.d. 2. Zyrtec 10 mg p.o. daily. 3. Klonopin 1 mg p.o. t.i.d. 4. Dexlansoprazole 60 mg p.o. at bedtime. 5. Lomotil 1 tablet p.o. b.i.d. as needed. 6. Prozac 10 mg p.o. daily. 7. Flonase 1 spray nasally as needed. 8. Gabapentin 800 mg p.o. 4 times a day. 9. Linzess 1 tablet p.o. daily as needed. 10. Mirtazapine 45 mg p.o. at bedtime. 11. Pataday 0.2% ophthalmic solution in both eyes t.i.d. as needed. 12. Zofran 4 mg p.o. t.i.d. as needed. 13. Oxycodone 1 tablet p.o. t.i.d. as needed. Propranolol 1 tablet p.o. b.i.d. as needed. 14. Carafate 1 tablet p.o. 4 times a day. TIME DISCHARGING THIS PATIENT: 20 minutes. cc: Darell Phillips MD
--- NOTE | 2019-07-12 19:24 | Extremity Venous Study ---
PROCEDURE NAME: Venous U/S Bilateral Legs - 07/09/2019 REFERRING PHYSICIAN: Darell Phillips MD READING PHYSICIAN: Rafael Potts MD SITE SUPERVISOR: Rehnaa. INDICATION: Pulmonary embolus. FINDINGS: The deep and superficial veins of the lower extremities were imaged throughout their course. They are compressible, patent without thrombus. INTERPRETATION: No deep venous thrombosis or superficial venous thrombosis of either lower extremity. cc: Rafael Potts MD
== END 2019-07-11 09:30 | disposition home or self-care (01) | DRG 176 ==
LOC: ED 09:50 → 2N 13:31
PROVIDERS: ATTEND Internal Medicine

== ENCOUNTER 2019-07-13 09:22 | Observation (INO) ==
--- NOTE | 2019-07-13 09:41 | PROVIDER DOCUMENTATION ---
HPI-General Adult - General Chief Complaint: Shortness of Breath Stated Complaint: CP, SOB Time Seen by Provider: 07/13/19 09:33 Source: patient Allergies/Adverse Reactions: Patient Allergies Allergy/AdvReac Type Severity Reaction Status Date / Time azithromycin [From Zithromax] AdvReac NAUSEA Verified 08/09/18 04:42 Home Medications: Home Medication List Medication Instructions Recorded Confirmed Last Taken Type Clonazepam [Klonopin] 1 mg PO TID 10/19/17 07/13/19 11/13/18 21:00 History Dexlansoprazole [Dexilant] 60 mg PO HS 10/19/17 07/13/19 11/13/18 21:00 History Gabapentin [Neurontin] 800 mg PO 4XDAY 10/19/17 07/13/19 11/14/18 09:00 History Ondansetron [Zofran] 4 mg PO TID PRN PRN 10/19/17 07/13/19 11/12/17 09:00 History Cetirizine HCl [Zyrtec] 10 mg PO DAILY 08/05/18 07/13/19 11/13/18 21:00 History Mirtazapine [Remeron] 45 mg PO HS 08/05/18 07/13/19 11/13/18 21:00 History Fluticasone 50 Mcg Nasal [place] 1 spray GERARDO PRN PRN 08/06/18 07/13/19 Unknown History [Flonase] Olopatadine 0.2% Oph Solution 1 drop BOTH EYES TID PRN 08/06/18 07/13/19 11/13/18 09:00 History [Pataday 0.2% Oph Solution] Propranolol [Inderal] 1 tab PO BID PRN 08/06/18 07/13/19 11/13/18 21:00 History Fluoxetine HCl [Prozac] 10 mg PO DAILY 06/09/19 07/13/19 Unknown History Diphenoxylate/Atropine [Lomotil] 1 ea PO BID PRN PRN 07/09/19 07/13/19 07/09/19 08:45 History Linaclotide [Linzess] 1 tab PO DAILY PRN 07/09/19 07/13/19 Unknown History Sucralfate 1 tab PO 4XDAY 07/09/19 07/13/19 Unknown History Apixaban [Eliquis] 10 mg PO BID #90 tab 07/11/19 07/13/19 Unknown Rx Albuterol Sulfate Inhaler 2 puff INH Q6H PRN PRN #1 inhaler 07/13/19 Unknown Rx [Ventolin Hfa] Prednisone 20 mg PO DIRECTED #18 tab 07/13/19 Unknown Rx - History of Present Illness -Gen Adult Nature of Presenting Problems: Pt. is 54 yof that presents with c/o SOB and CP that began on after she was discharged from the Hospital where she had been admitted for a PE. Pt. reports symptoms have been persistent and so she came back today. Location of Pain/Injury: reports: chest. denies: none, head, face, mouth, neck, upper extremity, hand(s), abdomen, back, pelvis, genitalia, lower extremity, feet, upper body, lower body, generalized, other Pain Radiation: reports: arm(s) (Left). denies: no radiation, back, buttocks, chest, epigastric, feet, groin, jaw, flank (L), legs (lower), LLQ, LUQ, neck, periumbilical, flank (R), RLQ, RUQ, shoulder(s), scapula, scrotal, sternal notch, suprapubic, legs (upper), urethral, vaginal, other Quality of Pain: reports: pressure, tightness. denies: aching, indigestion, throbbing Severity: reports: moderate. denies: mild, severe Onset/Duration: reports: abrupt, 2 days ago Timing: reports: still present, constant. denies: improving, intermittent, ge tting worse Context/Activities at Onset: reports: none. denies: light activity, moderate activity, vigorous activity, recent emotional stress, recent physical stress, recent trauma history, possible bad food, cold exposure, eating, out of country travel, rest, sleep, sexual activity, other Modifying Factors: improves with: nothing Associated Symptoms: reports: chest pain, shortness of breath. denies: denies symptoms, anxiety, arm pain, back/neck pain, constipation, cough, diaphoresis, diarrhea, dizziness, EENT symptoms, fatigue, fever/chills, genitourinary problems, headaches, heartburn, joint pain, loss of appetite, malaise, muscle aches, sinus congestion/drainage, nausea, rash, seizure, sensory/motor loss, pain with inspiration, swelling/mass in abdomen, syncope, vomiting, weakness, trouble walking, other Similar Symptoms Previously?: Yes Recently seen or treated by another doctor?: Yes Review of Systems - Adult - REVIEW OF SYSTEMS - ADULT Constitutional: reports: no symptoms reported Eyes: reports: no symptoms reported Ears, Nose, Mouth & Throat: reports: no symptoms reported Cardiovascular: reports: see HPI, chest pain. denies: irregular heart rate, palpitations, syncope Respiratory: reports: see HPI, shortness of breath. denies: cough, pleurisy, wheezing Gastrointestinal: reports: no symptoms reported Genitourinary: reports: no symptoms reported Musculoskeletal: reports: no symptoms reported Integumentary: reports: no symptoms reported Neurological: reports: no symptoms reported Psychiatric: reports: no symptoms reported Past History - Adult - PAST MEDICAL HISTORY-ADULT Review of Records: reports: Old Records Reviewed, Nursing Assessment Review, Medications Reviewed, Social history reviewed & non-contributory. Major Childhood Illnesses: reports: denies history Cardiovascular: reports: hyperlipidemia Respiratory: reports: denies history Gastrointestinal: reports: GERD, other Obstetrical/Gynecological: reports: denies history Genitourinary: reports: denies history Musculoskeletal: reports: chronic pain Neurological: reports: denies history Psychiatric: reports: anxiety Endocrine/Immune: reports: denies history Other Conditions: reports: denies history - PRIOR SURGERIES/PROCEDURES Surgical/Procedure History: reports: recent surgery, cholecystectomy, tonsillectomy - IMMUNIZATION STATUS Childhood Immunizations: See Nurse Assessment Flu Vaccine: See Nurse Assessment - FAMILY HISTORY Family History: reviewed, not pertinent - SOCIAL HISTORY Smoking: secondhand, greater than 1 pack/day Provider spent 3-5 mins advising pt. on dangers of tobacco.: Discussed manners to quit use, and f/u contacts for add'l counseling. Physical Exam-General - PHYSICAL EXAM-ADULT Initial Vital Signs Reviewed: Yes - CONSTITUTIONAL General Appearance: alert, mild distress. negative: anxious, obtunded, combative - EYES Eyes: PERRL/EOMI, pink conjunctivae - HEAD, EARS, NOSE, MOUTH & THROAT HENMT: normocephalic/atraumatic, moist mucous membranes - NECK Neck: non-tender, full range of motion, supple, normal inspection - RESPIRATORY Respiratory: lungs clear, normal breath sounds. negative: crackles, rales, rhonchi, stridor, wheezing - CARDIOVASCULAR Cardiovascular: regular rate, rhythm, no edema, tachycardia - GASTROINTESTINAL (ABDOMEN) Abdominal Exam: normal bowel sounds, non tender, soft - LYMPHATIC Lymphatic: no adenopathy - MUSCULOSKELETAL Back Exam: normal inspection, no CVA tenderness, no vertebral tenderness Extremity: normal range of motion, non-tender, normal gait, normal inspection Peripheral Pulses: radial (R): 2+, radial (L): 2+ - SKIN Integumentary: normal color, normal turgor, warm/dry - NEUROLOGIC Neurologic: grossly normal, no motor/sensory deficits - PSYCHIATRIC Psych/Mental Status: normal mood/affect, normal thought content, normal thought process, oriented x 3. negative: anxious, paranoid, tearful Progress - PLAN OF CARE/RESULTS Progress/Plan/Lab Results: Dr. Yu at bedside for evaluationVital Signs - 8 hr 07/13/19 09:36 Temperature 97.8 F Pulse Rate 106 H Respiratory Rate 19 Blood Pressure 97/66 O2 Sat by Pulse Oximetry 94 L Laboratory Tests 07/13/19 07/13/19 07/13/19 10:20 10:30 10:30 WBC 9.19 RBC 5.18 Hgb 16.3 H Hct 48.7 H MCV 94.0 MCH 31.5 H MCHC 33.5 RDW Std Deviation 13.3 Plt Count 251 MPV 10.4 Immature Gran % (Auto) 0.3 Neut % (Auto) 58.1 Lymph % (Auto) 31.2 Gar[place] % (Auto) 7.6 Eos % (Auto) 2.1 Baso % (Auto) 0.7 Immature Gran # (Auto) 0.03 Neut # (Auto) 5.34 Lymph # (Auto) 2.87 [place] # (Auto) 0.70 H Eos # (Auto) 0.19 Baso # (Auto) 0.06 PT INR PTT (Actin FS) Specimen Type ARTERIAL Sample Site R BRACHIAL pH 7.46 H pCO2 38 pO2 57 L HCO3 27.0 H Base Excess 3.1 H Oxyhemoglobin 87.5 L* ABG O2 Sat (Calculated) 20.7 ABG O2 Saturation 95.3 ABG Carboxyhemoglobin 7.20 H* ABG Methemoglobin 1.0 Ryan Test NO A-a O2 Difference 45.0 Total Hemoglobin 16.9 Lactate 1.20 Liter Flow 0.0 Blood Gas Modality ROOM AIR FiO2 % 21.0 Sodium Potassium Chloride Carbon Dioxide Anion Gap BUN Creatinine Estimated GFR/1.73 m2 BUN/Creatinine Ratio Glucose Calculated Osmolality Calcium Total Bilirubin AST ALT Alkaline Phosphatase Creatine Kinase Troponin T [id number]-H-Qrngnchufoc Pept 210 Total Protein Albumin Globulin Albumin/Globulin Ratio Urine Source Urine Color Urine Turbidity Urine pH Ur Specific [place] Urine Protein Ur Glucose (Stick) Ur Ketones (Stick) Urine Blood Urine Nitrite Urine Bilirubin Urobilinogen Dipstick Urine Leukocytes Urine WBC (Auto) Urine RBC (Auto) U Epithel Cells (Auto) Urine Bacteria (Auto) 07/13/19 07/13/19 07/13/19 10:30 10:30 10:30 WBC RBC Hgb Hct MCV MCH MCHC RDW Std Deviation Plt Count MPV Immature Gran % (Auto) Neut % (Auto) Lymph % (Auto) [place] % (Auto) Eos % (Auto) Baso % (Auto) Immature Gran # (Auto) Neut # (Auto) Lymph # (Auto) [place] # (Auto) Eos # (Auto) Baso # (Auto) PT 16.5 H INR 1.31 PTT (Actin FS) 38.8 Specimen Type Sample Site pH pCO2 pO2 HCO3 Base Excess Oxyhemoglobin ABG O2 Sat (Calculated) ABG O2 Saturation ABG Carboxyhemoglobin ABG Methemoglobin Ryan Test A-a O2 Difference Total Hemoglobin Lactate Liter Flow Blood Gas Modality FiO2 % Sodium 144 Potassium 3.5 Chloride 104 Carbon Dioxide 25 Anion Gap 15 BUN 12 Creatinine 0.8 Estimated GFR/1.73 m2 > 60 BUN/Creatinine Ratio 15 Glucose 100 Calculated Osmolality 287 Calcium 11.1 H Total Bilirubin 0.29 AST 22 ALT 62 H Alkaline Phosphatase 117 H Creatine Kinase 51 Troponin T < 0.010 [id number]-Utiqcwisubi Pept Total Protein 7.6 Albumin 4.5 Globulin 3.1 Albumin/Globulin Ratio 1.5 Urine Source Urine Color Urine Turbidity Urine pH Ur Specific [place] Urine Protein Ur Glucose (Stick) Ur Ketones (Stick) Urine Blood Urine Nitrite Urine Bilirubin Urobilinogen Dipstick Urine Leukocytes Urine WBC (Auto) Urine RBC (Auto) U Epithel Cells (Auto) Urine Bacteria (Auto) 07/13/19 10:30 WBC RBC Hgb Hct MCV MCH MCHC RDW Std Deviation Plt Count MPV Immature Gran % (Auto) Neut % (Auto) Lymph % (Auto) [place] % (Auto) Eos % (Auto) Baso % (Auto) Immature Gran # (Auto) Neut # (Auto) Lymph # (Auto) [place] # (Auto) Eos # (Auto) Baso # (Auto) PT INR PTT (Actin FS) Specimen Type Sample Site pH pCO2 pO2 HCO3 Base Excess Oxyhemoglobin ABG O2 Sat (Calculated) ABG O2 Saturation ABG Carboxyhemoglobin ABG Methemoglobin Ryan Test A-a O2 Difference Total Hemoglobin Lactate Liter Flow Blood Gas Modality FiO2 % Sodium Potassium Chloride Carbon Dioxide Anion Gap BUN Creatinine Estimated GFR/1.73 m2 BUN/Creatinine Ratio Glucose Calculated Osmolality Calcium Total Bilirubin AST ALT Alkaline Phosphatase Creatine Kinase Troponin T Kqj-J-Anzafjyejuj Pept Total Protein Albumin Globulin Albumin/Globulin Ratio Urine Source CLEAN CATCH Urine Color YELLOW Urine Turbidity CLEAR Urine pH 6.5 Ur Specific [place] 1.013 Urine Protein 30 A Ur Glucose (Stick) NEGATIVE Ur Ketones (Stick) NEGATIVE Urine Blood MODERATE A Urine Nitrite NEGATIVE Urine Bilirubin NEGATIVE Urobilinogen Dipstick NORMAL Urine Leukocytes NEGATIVE Urine WBC (Auto) <10 Urine RBC (Auto) TNTC A U Epithel Cells (Auto) <10 Urine Bacteria (Auto) NEGATIVE Discussed patient with Dr. Yu and he states ok to send home. Discussed results and plan of care with patient. Patient agrees with plan and verbalizes understanding. Result Diagrams: 07/13/19 10:30 07/13/19 10:30 - EKG 1 Time of EKG reading by physician:: 09:50 EKG Read and Signed by:: Michel Yu EKG Interpretation (*Must complete 3 of following elements*): Abnormal Rate: 96 Rhythm: NSR [place]: normal [place] Interval: normal ST Wave: normal - XRAY 1 XRAY Study: Chest ([facility] - [address], [address] [address] [facility] - [address] [place] [address] Department of Imaging Patient: GI GARCIA Date: 07/13/19MR#: [id number] : 1965ADM Status: REG ERAcct#: [id number] Age/Sex: 54/FRoom/Bed: Loc: ED Ordering Physician: Anand Davis Family Physician: Bart Ramirez MD Reason for Procedure: SOB/CP Signed CHEST-PORTABLE - 07/13/2019 INDICATION: SOB/CP COMPARISON: None FINDINGS: Lung volumes are much improved. There is some linear atelectasis in the right lung base. Otherwise the lungs are fairly clear. Heart size and pulmonary vascularity is normal. No pneumothorax or pleural effusion. IMPRESSION: Linear atelectasis in the right lung base but no acute disease. Electronically signed by Ilya Heart 07/13/2019 10:06 AM 07/13/19 1006 Interpreting Physician: Ilya Heart MD Dictated Date/Time: 07/13/19 1005 cc: Anand Davis; Bart Ramirez MD) XRAY Interpretation: See note - CT/MRI 1 CT Study: Thorax ([facility] - [address] [facility], [address] [id number] [facility] - [address] [place] [address] Department of Imaging Patient: GI GARCIA Date: 07/13/19#: [id number] : 1965ADM Status: [facility]#: [id number] Age/Sex: 54/FRoom/Bed: Loc: ED Ordering Physician: Anand Davis Family Physician: Bart Ramirez MD Reason for Procedure: Shortness of breath Signed CT ANGIOGRM PULMONARY ARTERIES - 07/13/2019 INDICATION: Shortness of breath TECHNIQUE: Axial CT images were obtained after administering intravenous contrast. Coronal MIP images were generated. COMPARISON: 07/09/2019 FINDINGS: There has been resolution of the filling defect in the left main pulmonary artery. No pulmonary embolism at this time. Heart size is borderline enlarged. There is advanced COPD. There is bibasilar mild atelectasis. No infiltrates or edema. There are moderate degenerative changes of the spine. No acute or suspicious bony lesion. IMPRESSION: COPD. No acute disease. This exam was performed using automated exposure control, adjustment of mA or kV according to patient size, and/or use of iterative reconstruction technique Electronically signed by Ilya Heart 07/13/2019 1:02 PM 07/13/19 1302 Interpreting Physician: Ilya Heart MD Dictated Date/Time: 07/13/19 1256 cc: Anand Davis; Bart Ramirez MD) CT Results: See note Departure - Departure Date of Disposition Decision: 07/13/19 Time of Disposition Decision: 13:08 DIAGNOSIS: Acute dyspnea Disposition: HOME 01 Certified Medical Emergency: Emergent Condition: Stable Additional Instructions: ED Follow Up Instructions: You have been treated by a care provider in the Emergency Department. These instructions are being provided to you so you can have an understanding of how to care for yourself upon discharge. Upon discharge from the Emergency De partment, you are responsible for making arrangements for follow-up care by a physician of your choice. Take all prescribed medications as directed. Return to the Emergency Department immediately for any new or worsening symptoms. You may call the Physician Referral phone number at [phone] to obtain a list of Physicians who are taking new patients. Prescriptions: Prednisone 20 mg PO DIRECTED #18 tab Albuterol Sulfate Inhaler [Ventolin Hfa] 2 puff INH Q6H PRN PRN #1 inhaler PRN Reason: Shortness Of Breath Referrals and Follow-Ups: None,PCP [NON-STAFF PROVIDER] - Discharge Education: Shortness of Breath, Adult, [id number] - Critical Care Note This patient required my direct & personal management of CC.: No Attestation - Physician/ KIRSTEN Attestation Patient care was provided by Advanced Practice Provider:: Yes Advanced Practice Provider:: Anand Davis Advanced Practice Provider documentation review:: The Mid-level provider documentation, treatment plan and medical decision making was reviewed by the physician who agrees with all treatment and medical decision making by the MLP. The physician spent face to face time with patient:: Yes Advanced Practice Provider documentation review:: Supervising physician onsite and consulted in the evaluation and care of this patient. The physician did have a face to face encounter with the patient.
--- NOTE | 2019-07-13 10:08 | Diag Imaging Result Doc PS360 ---
CHEST-PORTABLE - 07/13/2019 INDICATION: SOB/CP COMPARISON: None FINDINGS: Lung volumes are much improved. There is some linear atelectasis in the right lung base. Otherwise the lungs are fairly clear. Heart size and pulmonary vascularity is normal. No pneumothorax or pleural effusion. IMPRESSION: Linear atelectasis in the right lung base but no acute disease. Electronically signed by Ilya Heart 07/13/2019 10:06 AM
[2019-07-13 10:27] LABS: ALLEN TEST NO; BE 3.1 mmoll (-3.0-3.0); BLOOD TYPE ARTERIAL; O2(CT) 20.7 mL/dL (15.0-23.0); PCO2(98.6) 38 mmHg (35-45); PO2(98.6) 57 mmHg (60-100); SAMPLE BLOOD; SAO2 95.3 % (95.0-100.0); THB 16.9 g/dL (11.5-17.4); pH(98.6) 7.46 (7.35-7.45)
[2019-07-13 10:28] LABS: MODALITY ROOM AIR
[2019-07-13 10:31] LABS: O2HB 87.5 % (95.0-99.0)
[2019-07-13 10:35] LABS: URINE SOURCE CLEAN CATCH
[2019-07-13 10:44] LABS: BASO# 0.06 X1000 (0.0-0.2); BASO% 0.7 % (0.0-0.8); EOS# 0.19 X1000 (0.0-0.7); EOS% 2.1 % (0.0-10.0); HEMATOCRIT 48.7 % (37.0-47.0); HEMOGLOBIN 16.3 g/dL (12.0-16.0); IMM GRAN# 0.03 X1000 (0.0-0.04); IMM GRAN% 0.3 % (0.0-0.5); LYMPH# 2.87 X1000 (1.2-3.4); LYMPH% 31.2 % (20.5-51.1); MCH 31.5 PG (27-31); MCHC 33.5 g/dL (33-37); MONO% 7.6 % (1.7-9.3); MPV 10.4 FL (7.4-10.4); NEUT# 5.34 X1000 (1.4-6.5); NEUT% 58.1 % (42.2-75.2); PLT 251 X1000 (130-400); RBC 5.18 XMIL (4.2-5.4); RDW 13.3 % (11.5-14.5); WBC 9.19 X1000 (4.8-10.8)
[2019-07-13 10:46] LABS: BILIRUBIN URINE NEGATIVE (NEGATIVE); BLOOD URINE MODERATE (NEGATIVE); COLOR YELLOW; GLUCOSE URINE NEGATIVE (NEGATIVE); KETONE URINE NEGATIVE (NEGATIVE); LEUKOCYTES URINE NEGATIVE (NEGATIVE); NITRITE URINE NEGATIVE (NEGATIVE); PH URINE 6.5; PROTEIN URINE 30 mg/dL (NEGATIVE); SP GRAVITY URINE 1.013; TURBIDITY URINE CLEAR (CLEAR); UROBILINOGEN URINE NORMAL (NORMAL)
[2019-07-13 10:47] LABS: UR EPITHELIAL CELLS <10 /HPF (<10); URINE BACTERIA NEGATIVE /HPF; URINE RBC TNTC /HPF (<10); URINE WBC <10 /HPF (<10)
[2019-07-13 10:51] LABS: INR 1.31; PROTIME 16.5 Seconds (11.0-16.0)
[2019-07-13 10:52] LABS: PTT 38.8 Seconds (22.3-41.8)
[2019-07-13 11:17] LABS: AGAP 15; ALB/GLOB RATIO 1.5; ALBUMIN 4.5 g/dL (3.5-5.0); ALKALINE PHOSPHATASE 117 U/L (32-104); BUN 12 mg/dL (8-22); CALCIUM 11.1 mg/dL (8.8-10.2); CHLORIDE 104 mmol/L (98-107); CK PROFILE 51 U/L (24-173); COSMO 287; CREATININE 0.8 mg/dL (0.5-0.9); ESTIMATED GFR > 60; GLUCOSE 100 mg/dL (70-104); GOT 22 U/L (10-30); GPT 62 U/L (10-36); POTASSIUM 3.5 mmol/L (3.5-5.1); SODIUM 144 mmol/L (136-145); TCO2 25 mmol/L (25-35); TOTAL BILIRUBIN 0.29 mg/dL (0.20-1.00); TOTAL PROTEIN 7.6 g/dL (6.3-8.3)
--- NOTE | 2019-07-13 13:05 | Diag Imaging Result Doc PS360 ---
CT ANGIOGRM PULMONARY ARTERIES - 07/13/2019 INDICATION: Shortness of breath TECHNIQUE: Axial CT images were obtained after administering intravenous contrast. Coronal MIP images were generated. COMPARISON: 07/09/2019 FINDINGS: There has been resolution of the filling defect in the left main pulmonary artery. No pulmonary embolism at this time. Heart size is borderline enlarged. There is advanced COPD. There is bibasilar mild atelectasis. No infiltrates or edema. There are moderate degenerative changes of the spine. No acute or suspicious bony lesion. IMPRESSION: COPD. No acute disease. This exam was performed using automated exposure control, adjustment of mA or kV according to patient size, and/or use of iterative reconstruction technique Electronically signed by Ilya Heart 07/13/2019 1:02 PM
[2019-07-13] MEDS ORDERED: D5 1/2 NS 1,000 ML IV ONE (13:42)
--- NOTE | 2019-07-13 14:05 | EKG Report ---
Test Performed on : 07/13/2019 09:45:53 AM Test Reason : CP/SOB Blood Pressure : / mmHG Vent. Rate : 096 BPM Atrial Rate : 096 BPM P-R Int : 162 ms QRS Dur : 086 ms QT Int : 342 ms P-R-T Axes : 042 019 037 degrees QTc Int : 432 ms Normal sinus rhythm. ST & T wave abnormality, consider anterior ischemia Abnormal ECG When compared with ECG of 10-JUL-2019 06:20, No significant change was found Unconfirmed Result
[2019-07-13] MEDS ORDERED: LOMOTIL PO PRN (18:47)
[2019-07-13] MEDS: ZOFRAN IV PRN ×2 (19:09→23:29)
[2019-07-13] MEDS: KLONOPIN PO SCH (21:42)
[2019-07-13] MEDS: ELIQUIS PO SCH (21:42)
[2019-07-13] MEDS: REMERON PO SCH (21:42)
[2019-07-13] MEDS: NEURONTIN PO SCH (21:42)
[2019-07-14] MEDS: ZOFRAN IV PRN ×3 (05:52→19:39)
[2019-07-14 06:39] LABS: BASO# 0.05 X1000 (0.0-0.2); BASO% 0.6 % (0.0-0.8); EOS# 0.23 X1000 (0.0-0.7); EOS% 2.5 % (0.0-10.0); HEMATOCRIT 46.5 % (37.0-47.0); HEMOGLOBIN 15.3 g/dL (12.0-16.0); IMM GRAN# 0.04 X1000 (0.0-0.04); IMM GRAN% 0.4 % (0.0-0.5); LYMPH# 2.96 X1000 (1.2-3.4); LYMPH% 32.7 % (20.5-51.1); MCH 31.5 PG (27-31); MCHC 32.9 g/dL (33-37); MCV 95.9 FL (81-99); MONO# 0.81 X1000 (0.11-0.59); MPV 10.6 FL (7.4-10.4); NEUT# 4.95 X1000 (1.4-6.5); NEUT% 54.8 % (42.2-75.2); PLT 225 X1000 (130-400); RBC 4.85 XMIL (4.2-5.4); RDW 13.2 % (11.5-14.5); WBC 9.04 X1000 (4.8-10.8)
[2019-07-14 06:59] LABS: ALB/GLOB RATIO 1.4; CALCIUM 10.1 mg/dL (8.8-10.2); POTASSIUM 3.6 mmol/L (3.5-5.1); TOTAL BILIRUBIN 0.22 mg/dL (0.20-1.00); TOTAL PROTEIN 6.9 g/dL (6.3-8.3)
[2019-07-14] MEDS: KLONOPIN PO SCH ×3 (08:14→20:10)
[2019-07-14] MEDS: NEURONTIN PO SCH ×4 (08:14→20:10)
[2019-07-14] MEDS: ELIQUIS PO SCH ×2 (08:15→20:10)
--- NOTE | 2019-07-14 08:55 | Diag Imaging Result Doc PS360 ---
ABDOMEN FLAT/UPRIGHT - 07/14/2019 INDICATION: chest pain COMPARISON: 07/29/2015 FINDINGS: There is a nonobstructive bowel gas pattern. No free air or abdominal calcifications. No constipation. Stable cholecystectomy clips. IMPRESSION: No acute disease. Electronically signed by Ilya Heart 07/14/2019 8:53 AM
--- NOTE | 2019-07-14 10:35 | PROGRESS NOTE ---
DATE: 07/14/2019 SUBJECTIVE: The patient was admitted yesterday with abdominal pain, diarrhea, and chronic nausea. She had a recent history of recurrent pulmonary embolus and was just discharged within the last [address] scan yesterday in emergency room revealed resolution of the left pulmonary embolus. She does have significant abdominal crampy pain and diarrhea as well as nausea. The nausea somewhat better today. She is trying to eat. DIAGNOSTIC STUDIES: Her laboratory work reveals some dehydration with hematocrit of 47; otherwise normal lab work. PLAN: She is maintained on her Eliquis as well as her home medication and will ideally be discharged within the next 24 hours. cc: Bart Ramirez MD
[2019-07-14] MEDS: TYLENOL PO PRN ×2 (11:54→19:39)
[2019-07-14] MEDS: REMERON PO SCH (20:10)
[2019-07-15] MEDS: ZOFRAN IV PRN ×2 (01:26→06:18)
[2019-07-15] MEDS: TYLENOL PO PRN (06:17)
[2019-07-15 07:18] VITALS: BP 112/57
[2019-07-15] MEDS: ELIQUIS PO SCH (09:31)
[2019-07-15] MEDS: KLONOPIN PO SCH (09:33)
[2019-07-15] MEDS: NEURONTIN PO SCH (09:33)
--- NOTE | 2019-08-05 09:46 | HISTORY AND PHYSICAL ---
DIAGNOSIS: Abdominal pain and nausea, intractable. PLAN: Admission, evaluation, and a possible GI consultation. HISTORY OF PRESENT ILLNESS: The patient is a 54-year-old, white female known to me for many years. She has had multiple problems with GI complaints. Most recently, Dr. Pop performed EGD and colonoscopy revealing significant gastritis and duodenitis. She is on a regimen of Prilosec and Carafate. She also has a history of recurrent pulmonary embolus. She was just in the hospital and discharged 3 days prior to this admission. CT scan today in the emergency room revealed resolution of the pulmonary embolus but she remains on her Eliquis. She will be admitted, given IV fluids. She is somewhat dehydrated with a hematocrit of 47 and hopefully discharged within the next 24 hours. PHYSICAL EXAMINATION: GENERAL: Reveals a middle-aged, white female in moderate discomfort. HEAD AND NECK EXAMINATION: She is normocephalic, atraumatic. Pupils equal and reactive. Ears, nose, and throat are negative. CHEST: Clear. ABDOMEN: Somewhat protuberant with some pain secondary to retching and vomiting. : Negative. NEUROLOGIC: Intact. IMPRESSION: Probable somewhat dehydration with abdominal pain and nausea, and poor oral intake. PLAN: The plan is admission, IV fluids, and gradual dietary advancements and hopefully early discharge. The patient will be maintained on her Eliquis and her home medications during the hospitalization. cc: Bart Ramirez MD
== END 2019-07-15 11:12 | disposition home or self-care (01) ==
LOC: EDIPHOLD 09:22 → ED 09:22 → 4N 15:32
PROVIDERS: ADMIT Surgery; ATTEND Surgery